=== PATIENT | male | born 1950 | race Caucasian/White ===

== ENCOUNTER 2020-03-16 14:58 | IRF | payer MEDICARE, OTHER, SELFPAY ==
[2020-03-16 15:00] VITALS: BP 149/69; PULSE 75; RESP 18; TEMP 36.6; O2SAT 98; BMI 26.6
--- NOTE | 2020-03-16 16:37 | ADMGEN ---
This patient, Alexis Teague, was admitted to [facility] Room 222-02. Patient/family oriented to hospital policies and general routines including ID bracelet, bed and alarms, visiting hours, pain management, procedures, bathroom and other care routines, personal items, smoking policy, room service/diet, and visiting hours. Valuables list has been completed. Information on how to activate the Rapid Response Team has been discussed. Patient/Family are encouraged to report perceived risks to care and to ask questions if they do not understand what they are told or what they should do.
[2020-03-16 17:10] LABS: Glucose Point of Care 245 (65-105)
[2020-03-16] MEDS: INSULIN ASPART (*BKC) 100 UNITS/ML SUB-Q ×2 (17:42→17:43)
[2020-03-16] MEDS: INSULIN GLARGINE (LANTUS) 1,000 UNITS/10 ML VIAL 16 UNITS SUB-Q (20:23)
[2020-03-16] MEDS: TAMSULOSIN HCL 0.4 MG CAPSULE PO (20:23)
[2020-03-16 20:26] LABS: Glucose Point of Care 232 (65-105)
[2020-03-16 21:15] VITALS: PULSE 58; RESP 13; O2SAT 97
[2020-03-16 22:00] VITALS: BP 143/72; PULSE 72; RESP 18; TEMP 36.2; O2SAT 97
[2020-03-17 01:54] VITALS: PULSE 60; RESP 17; O2SAT 96
[2020-03-17 05:17] LABS: Basophils Absolute Auto 0.1 K/mm3 (0.0-0.1); Basophils Percent Auto 0.6 % (0.2-1.2); Eosinophils Absolute Auto 0.5 K/mm3 (0-0.3); Eosinophils Percent Auto 5.9 % (0-4.4); Hematocrit 38.7 % (42.0-52.0); Hemoglobin 13.6 g/dL (14.0-18.0); Immature Granulocyte Absolute 0.03 K/mm3 (0.00-0.031); Immature Granulocyte Percent A 0.4 % (0-0.5); Lymphocytes Absolute Auto 2.71 K/mm3 (0.9-3.2); Lymphocytes Percent Auto 34.3 % (18.3-44.2); Mean Corpuscular HGB Conc 35.1 g/dl (32-36); Mean Corpuscular Volume 91.1 fl (80-100); Mean Platelet Volume 10.9 fl (7.4-10.4); Monocytes Absolute Auto 0.7 K/mm3 (0.1-0.6); Monocytes Percent Auto 9.4 % (2.6-8.5); Neutrophils Absolute Auto 3.9 K/mm3 (1.3-6.7); Neutrophils Percent Auto 49.4 % (45.5-73.1); Platelet Count Result 193 k/mm3 (150-375); Red Blood Count 4.25 M/mm3 (4.6-6.20); Red Cell Distribution Width 11.9 % (11.5-14.5); White Blood Count 7.9 K/mm3 (4.5-10.0)
[2020-03-17 05:32] LABS: Blood Urea Nitrogen 14 mg/dL (9-20); Calcium 9.4 mg/dL (8.4-10.2); Carbon Dioxide 32 mmol/L (22-30); Chloride 101 mmol/L (98-107); Estimated CRCL calculation 68 ml/min; Estimated Glomerular Filt Rate > 60; Glucose 206 mg/dL (75-110); Potassium 3.7 mmol/L (3.4-5.0); Sodium 136 mmol/L (137-145)
[2020-03-17 06:00] VITALS: BP 141/78; PULSE 56; RESP 18; TEMP 36.7; O2SAT 96
[2020-03-17 06:53] LABS: Glucose Point of Care 183 (65-105)
[2020-03-17 08:00] VITALS: PULSE 56; RESP 18; O2SAT 96
[2020-03-17] MEDS: ESCITALOPRAM OXALATE 10 MG TABLET PO (08:18)
[2020-03-17] MEDS: PANTOPRAZOLE 40 MG TABLET PO (08:18)
[2020-03-17] MEDS: CHOLECALCIFEROL 1,000 UNIT TABLET 1000 UNITS PO (08:18)
[2020-03-17] MEDS: ASPIRIN 325 MG ENTERIC TABLET PO (08:18)
[2020-03-17] MEDS: VITAMIN E 1,000 UNIT CAPSULE 1000 UNIT PO (08:19)
[2020-03-17] MEDS: INSULIN ASPART (*BKC) 100 UNITS/ML SUB-Q ×3 (08:20→17:42)
--- NOTE | 2020-03-17 09:30 | WPDREHABHP ---
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 The patient is a 69-year-old the white male with a past medical history of ventriculomegaly, hypertension, coronary artery disease, carotid stenosis, diabetes mellitus, hypertension, hyperlipidemia, sinus tachycardia, and obstructive sleep apnea who presented to [facility] on March 10, 2020 transferred from [facility] after being found down by his son. Patient laying from [facility] around 3:00 p.m.. He presented with left-sided weakness left facial droop and decreased sensation on the left. Of note he was scheduled to have a high volume lumbar spinal tap on December 22 at [facility], the procedure was canceled due to the COVID-[address] of the head showed no acute intracranial abnormalities. He was transferred to [facility] but there were no beds available. He received aspirin prior to being transferred to [facility]. MRI revealed an acute right posterior frontal, parietal infarct. Neurology was consulted and started the patient on a high intensity and statin and anti-platelet therapy. Carotid Dopplers estimated less than 50% stenosis bilaterally with antegrade flow in both vertebral arteries. EEG was negative echocardiogram showed a positive PFO and Cardiology was consulted. He will be discharged with an event monitor. Cardiology will consider closure in the monitor does not show any arrhythmias. Physical examination cut is we will left-sided weakness decreased gross motor control impaired balance and decreased safety awareness. The patient passed his swallowing study and is on mechanical soft diet with thin liquids. His seems like the patient had muscle aches and pains due to atorvastatin and it has been discontinued The patient has had no major surgery in the 100 days prior to admission. The patient has had falls in the past year. The patient has had no falls with injuries in the past year the patient was found down prompting this admission Therapy was initiated at the acute care facility and the patient transferred to us from [facility] on March 16, 2020 FALLS OR SURGERIES: The patient has had no major surgeries in the 100 days prior to admission. They had falls in the past year. They had falls withoutinjury in the past year. PAST MEDICAL HISTORY: anxiety, coronary artery disease, carotid stenosis, diabetes mellitus with hyperglycemia, CVA, Bejarano's esophagus, gastroesophageal reflux disease, hyperlipidemia, hypertension, kidney stones, lumbar spondylosis, obstructive sleep apnea, neutrophilic leukocytosis, asymmetric blood pressures, benign prostatic hyperplasia with nocturia PAST SURGICAL HISTORY: cardiac stent placement, coronary artery bypass graft, fracture surgery, knee surgery, lithotripsy, sinus surgery, tonsillectomy SOCIAL HISTORY: patient lives independently in a 1 level home with the basement. He is able to live on the main level with bedroom /bathroom. There to steps to enter with rails. He is a standard toilet. Patient was completely independent prior with no assistive device. He was able to drive. 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 He quit smoking 47 years ago. Occasional use of alcohol. No illicit use of drug. The patient was found down prompting this admission. No major surgery in the past in a daze. FAMILY HISTORY: Mother with diabetes Alzheimer's disease and heart attack. Father with heart attack. Sister with diabetes hypertension is stroke heart disease. Paternal grandmother with memory loss. Paternal grandfather with cancer and heart attack PRIOR LEVEL OF FUNCTION: Eat
[2020-03-17 12:25] LABS: Glucose Point of Care 185 (65-105)
[2020-03-17 14:00] VITALS: BP 152/72; PULSE 69; RESP 18; TEMP 36.7; O2SAT 98
[2020-03-17 14:09] VITALS: BMI 26.6
[2020-03-17 17:13] LABS: Glucose Point of Care 164 (65-105)
[2020-03-17] MEDS: TAMSULOSIN HCL 0.4 MG CAPSULE PO (20:21)
[2020-03-17 20:55] LABS: Glucose Point of Care 235 (65-105)
[2020-03-17] MEDS: INSULIN GLARGINE (LANTUS) 1,000 UNITS/10 ML VIAL 16 UNITS SUB-Q (20:59)
[2020-03-17 22:00] VITALS: BP 149/77; PULSE 64; RESP 18; TEMP 36.8; O2SAT 99
[2020-03-17 22:30] VITALS: PULSE 61; RESP 14; O2SAT 98
[2020-03-18 02:26] VITALS: PULSE 60; RESP 13; O2SAT 97
[2020-03-18 06:00] VITALS: BP 129/69; PULSE 64; RESP 18; TEMP 36.6; O2SAT 100
[2020-03-18 06:04] LABS: Glucose Point of Care 153 (65-105)
[2020-03-18] MEDS: CHOLECALCIFEROL 1,000 UNIT TABLET 1000 UNITS PO (08:46)
[2020-03-18] MEDS: ASPIRIN 325 MG ENTERIC TABLET PO (08:46)
[2020-03-18] MEDS: PANTOPRAZOLE 40 MG TABLET PO (08:47)
[2020-03-18] MEDS: ESCITALOPRAM OXALATE 10 MG TABLET PO (08:47)
[2020-03-18] MEDS: VITAMIN E 1,000 UNIT CAPSULE 1000 UNIT PO (08:47)
[2020-03-18] MEDS: INSULIN ASPART (*BKC) 100 UNITS/ML SUB-Q ×4 (09:05→17:25)
--- NOTE | 2020-03-18 10:34 | RPD ---
INDIVIDUALIZED PLAN OF CARE FOR Alexis Teague Brief Synthesis of Pre-Admission Screen, Post-Admission Evaluation and Therapy Evaluations: The patient presents to rehab with an acute right posterior frontal/parietal infarct. Comorbidities include hypertension, carotid stenosis, coronary artery disease, dyslipidemia, obstructive sleep apnea on CPAP, type 2 diabetes mellitus with hyperglycemia, obesity, neutrophilic leukocytosis, asymmetric blood pressures, chronic depression, and benign prostatic hyperplasia with nocturia. The patient?s needs will be best met in an intensive program vs. at a lower level of care. The patient requires physician services for neurology services, medical oversight, coordination of care, monitoring and treatment of uncontrolled diabetes mellitus, hypertension with asymmetric blood pressures, monitoring for adverse reactions to new medications, pain control, and monitoring of infection. The patient requires nursing services for frequent neuro checks, anticoagulation therapy, medication management and education, pressure relief and skin care management, monitoring of labs, bowel and bladder training, diabetes management and education, and fall/safety precautions. Deficits include:ADLs, Balance, Cognition, Endurance, Family Training/Education, Mobility, ROM, Safety, Strength, Swallowing, and Transfers. Solid Waste Engineer/Case Management for: Discharge Planning and Patient/Family Counseling Physical Therapy: 5 days per week for 75 minutes. Treatments may include: Therapeutic Exercise, Gait Training, Neuromuscular Re-education, Transfer Training, Community Reintegration, Bed Mobility, Patient/Family Education, Wheelchair Mobility Group Therapy/Concurrent Therapy Rationales: -Improve attention span during functional activities in a distracted environment. -Enhance problem solving and/or adequate judgment skills during functional activities in a distracted environment. -Promote increased safety awareness in a distracted environment to reduce fall risk with functional tasks, transfers, and ambulation to allow a more safe, self-sufficient return to the home environment. -Improve dynamic balance skills to promote safety and independence with functional activities in a distracted environment for maximum gain. Occupational Therapy: 5 days per week for 75 minutes. Treatments may include: Therapeutic Exercise, Therapeutic Activity, Cognitive Training, Self-Care Transfer Training, Community Reintegration, Home Management, Patient/Family Education, Wheelchair Mobility Training, Energy Conservation Training Group Therapy/Concurrent Therapy Rationales: -Allow therapist to observe and teach generalization and carry-over of skills learned in individual therapy. -Enhance problem solving and sequencing skills during therapeutic activities in a distracted environment. -Promote increased safety awareness in a realistic setting to reduce fall risk with functional tasks due to visual and verbal distractions. -Increase functional level with ADLs, ADL transfers and use of adaptive equipment through therapeutic activities with others while promoting safety to allow a more safe, self-sufficient return home. Speech Therapy: 5 days per week for 30 minutes. Treatments may include: Dysphasia Therapy, Speech/Language/Communication Therapy, Cognitive Training, Patient/Family Education Group Therapy/Concurrent Therapy - Rationale: -Allow therapist to observe and teach generalization and carry-over of skills learned in individual therapy. -Improve comprehension skills with complex or abstract ideas through discussion in a realistic setting. -Enhance problem solving skills with complex issues during activities in a distracted environment. -Promote increased memory skills and concentration in a distracted environment for a safe transition home. -Improve attention and focus with language/communication skills in a realistic and supportive therapeutic setting. -Allow for practice of expres
[2020-03-18 12:39] LABS: Glucose Point of Care 206 (65-105)
[2020-03-18 14:00] VITALS: BP 128/65; PULSE 76; RESP 18; TEMP 36.6; O2SAT 98
[2020-03-18 17:31] LABS: Glucose Point of Care 191 (65-105)
[2020-03-18] MEDS: INSULIN GLARGINE (LANTUS) 1,000 UNITS/10 ML VIAL 16 UNITS SUB-Q (20:36)
[2020-03-18] MEDS: TAMSULOSIN HCL 0.4 MG CAPSULE PO (20:36)
[2020-03-18 20:57] LABS: Glucose Point of Care 231 (65-105)
[2020-03-18 21:39] VITALS: PULSE 55; RESP 25; O2SAT 96
[2020-03-18 22:00] VITALS: BP 146/81; PULSE 69; RESP 16; TEMP 36.9; O2SAT 100
[2020-03-19 02:10] VITALS: PULSE 64; RESP 13; O2SAT 94
[2020-03-19 06:00] VITALS: BP 159/72; PULSE 57; RESP 18; TEMP 36.3; O2SAT 100
[2020-03-19 06:59] LABS: Glucose Point of Care 172 (65-105)
[2020-03-19 08:00] VITALS: PULSE 57; RESP 18; O2SAT 100
[2020-03-19] MEDS: INSULIN ASPART (*BKC) 100 UNITS/ML SUB-Q ×4 (09:41→17:31)
[2020-03-19] MEDS: ASPIRIN 325 MG ENTERIC TABLET PO (09:46)
[2020-03-19] MEDS: PANTOPRAZOLE 40 MG TABLET PO (09:46)
[2020-03-19] MEDS: CHOLECALCIFEROL 1,000 UNIT TABLET 1000 UNITS PO (09:47)
[2020-03-19] MEDS: ESCITALOPRAM OXALATE 10 MG TABLET PO (09:47)
[2020-03-19] MEDS: VITAMIN E 1,000 UNIT CAPSULE 1000 UNIT PO (09:47)
[2020-03-19 12:50] LABS: Glucose Point of Care 187 (65-105)
--- NOTE | 2020-03-19 12:51 | WPDNEURORHBP ---
Subjective Date/time seen: 03/19/20 12:51 Interval history: this 69-year-old gentleman is here after having had right hemispheric stroke with left-sided hemiparesis he is doing fairly well he denies any headache nausea vomiting chest pain shortness of breath fever chills sore throat Review of Systems Review of Systems: All systems reviewed & are unremarkable except as noted in HPI and below Functional Status Ambulation Ability Ability to Ambulate 10 Feet: Contact Guard Ability to Ambulate 50 Feet With 2 Turns: Contact Guard Ability to Ambulate 150 Feet: Contact Guard Ambulation Assistive Devices: None Transfers Ability Ability to Transfer In/Out of Chair: Independent Exam Const: General: comfortable and no acute distress HENMT: General nose exam: Normal nares present Mouth: Yes moist mucous membranes Eyes: General: appearance normal, both eyes and all related structures Neck: Neck: supple and no JVD Resp: Effort & Inspection: normal respiratory effort Auscultation: clear to auscultation bilaterally Cardio: Rate: regular rate Rhythm: regular rhythm GI: GI Palp: Yes Soft to palpation Auscultation: normal bowel sounds Skin: General skin exam: normal color and no rashes or lesions noted Neuro: Other: patient is awake and alert and well oriented and left-sided hemiparesis is stable and improved Extrem: General: normal to inspection Psych: Mental Status: mental status grossly normal Objective Data Vital Signs Vital Signs: Vital Signs - 24 hr 03/18/20 14:00 03/18/20 21:39 03/18/20 22:00 Temperature 36.6 C 36.9 C Pulse Rate 76 55 L 69 Respiratory Rate 18 25 H 16 Blood Pressure 128/65 146/81 H Pulse Oximetry 98 96 100 03/19/20 02:10 03/19/20 06:00 03/19/20 08:00 Temperature 36.3 C L Pulse Rate 64 57 L 57 L Respiratory Rate 13 18 18 Blood Pressure 159/72 H Pulse Oximetry 94 100 100 Intake/Output Intake/Output: Intake & Output 03/16/20 03/17/20 03/18/20 03/19/20 23:59 23:59 23:59 23:59 Intake Total 212 985 3302 Balance 113 295 8818 Meds/Results Medications: Active Medications Generic Name Dose Route Start Last Admin Trade Name Freq PRN Reason Stop Dose Admin Aspirin 325 mg 03/17/20 09:00 03/19/20 09:46 Aspirin Ec PO 325 mg DAILY DEEPTI Administration Escitalopram Oxalate 10 mg 03/17/20 09:00 03/19/20 09:47 Lexapro PO 10 mg DAILY DEEPTI Administration Insulin Aspart 3 - 6 units 03/16/20 17:00 03/19/20 11:57 Novolog SUB-Q Not Given [facility] Protocol Insulin Aspart 5 units 03/16/20 17:00 03/19/20 11:59 Novolog SUB-Q 5 units TIDWM DEEPTI Administration Insulin Glargine 16 units 03/16/20 21:00 03/18/20 20:36 Lantus SUB-Q 04/15/20 21:01 16 units HS DEEPTI Administration Nitroglycerin 0.4 mg 03/16/20 16:29 Nitrostat Subl 0.4 Mg (1/150) SUBLINGUAL Q5MIN PRN Chest Pain Non-Formulary Medication 1 tab-cap 03/17/20 09:00 Vit B Comp With C-Calcium Carb PO 04/16/20 09:01 DAILY DEEPTI Pantoprazole Sodium 40 mg 03/17/20 09:00 03/19/20 09:46 Protonix PO 40 mg QAM DEEPTI Administration Tamsulosin HCl 0.4 mg 03/16/20 21:00 03/18/20 20:36 Flomax PO 0.4 mg HS DEEPTI Administration Vitamin D 1,000 unit 03/17/20 09:00 03/19/20 09:47 Vitamin D PO 1,000 unit DAILY DEEPTI Administration Vitamin E 1,000 unit 03/17/20 09:00 03/19/20 09:47 Vitamin E PO 1,000 unit DAILY DEEPTI Administration Labs Labs: Laboratory Results - last 24 hr 03/18/20 03/18/20 03/19/20 17:15 20:33 06:48 POC Capillary Glucose 191 H 231 H 172 H 03/19/20 11:55 POC Capillary Glucose 187 H Progress Note: A&P Assessment and Plan (1) Cerebral ventriculomegaly: Code(s): G93.89 - Other specified disorders of brain Status: Acute (2) H/O heart artery stent: Code(s): Z95.5 - Presence of coronary angioplasty implant and graft Status: Acute (3) FH: CABG (coron
[2020-03-19 14:00] VITALS: BP 126/58; PULSE 74; RESP 20; TEMP 36.6; O2SAT 95
[2020-03-19 17:15] LABS: Glucose Point of Care 215 (65-105)
[2020-03-19 20:49] VITALS: PULSE 65; RESP 17; O2SAT 97
[2020-03-19] MEDS: INSULIN GLARGINE (LANTUS) 1,000 UNITS/10 ML VIAL 16 UNITS SUB-Q (20:58)
[2020-03-19] MEDS: TAMSULOSIN HCL 0.4 MG CAPSULE PO (20:59)
[2020-03-19 22:00] VITALS: BP 144/78; PULSE 67; RESP 20; TEMP 37; O2SAT 99
[2020-03-19 22:01] LABS: Glucose Point of Care 207 (65-105)
[2020-03-20 06:00] VITALS: BP 137/59; PULSE 77; RESP 20; TEMP 36.4; O2SAT 100
[2020-03-20 06:50] LABS: Glucose Point of Care 155 (65-105)
[2020-03-20] MEDS: ASPIRIN 325 MG ENTERIC TABLET PO (09:26)
[2020-03-20] MEDS: CHOLECALCIFEROL 1,000 UNIT TABLET 1000 UNITS PO (09:26)
[2020-03-20] MEDS: PANTOPRAZOLE 40 MG TABLET PO (09:26)
[2020-03-20] MEDS: ESCITALOPRAM OXALATE 10 MG TABLET PO (09:26)
[2020-03-20] MEDS: VITAMIN E 1,000 UNIT CAPSULE 1000 UNIT PO (09:26)
[2020-03-20] MEDS: INSULIN ASPART (*BKC) 100 UNITS/ML SUB-Q ×4 (09:28→17:45)
[2020-03-20 10:30] VITALS: O2SAT 67
[2020-03-20 12:31] LABS: Glucose Point of Care 211 (65-105)
[2020-03-20 14:00] VITALS: BP 142/60; PULSE 66; RESP 20; TEMP 36.4; O2SAT 97
--- NOTE | 2020-03-20 16:54 | WPDNEURORHBP ---
Subjective Date/time seen: 03/20/20 16:54 Interval history: this pleasant 69-year-old gentleman is here after having had the stroke which has left him with left-sided hemiparesis he is complaining of dry skin of his face and we will give him some Vaseline He denies any headache nausea vomiting chest pain shortness of breath fever chills sore throat He does have underlying ventriculomegaly for which she and near future once he gets the rehab and he will need rather prolonged slow drainage of his spinal fluid which was arranged at [facility] however was deferred because of the Coronavirus Review of Systems Review of Systems: All systems reviewed & are unremarkable except as noted in HPI and below Functional Status Ambulation Ability Ability to Ambulate 10 Feet: Standby Assistance Ability to Ambulate 50 Feet With 2 Turns: Standby Assistance Ability to Ambulate 150 Feet: Standby Assistance Ambulation Assistive Devices: None Transfers Ability Ability to Transfer In/Out of Chair: Independent Exam Const: General: comfortable and no acute distress HENMT: General nose exam: Normal nares present Mouth: Yes moist mucous membranes Eyes: General: appearance normal, both eyes and all related structures Neck: Neck: supple and no JVD Resp: Effort & Inspection: normal respiratory effort Auscultation: clear to auscultation bilaterally Cardio: Rate: regular rate Rhythm: regular rhythm GI: GI Palp: Yes Soft to palpation Auscultation: normal bowel sounds Skin: General skin exam: normal color and no rashes or lesions noted Neuro: Other: the patient is awake alert well oriented time place person has normal speech and language function and mild memory deficit left-sided hemiparesis is improving Extrem: General: normal to inspection Psych: Mental Status: mental status grossly normal Objective Data Vital Signs Vital Signs: Vital Signs - 24 hr 03/19/20 20:49 03/19/20 22:00 03/20/20 06:00 Temperature 37.0 C 36.4 C Pulse Rate 65 67 77 Respiratory Rate 17 20 20 Blood Pressure 144/78 H 137/59 L Pulse Oximetry 97 99 100 03/20/20 14:00 Temperature 36.4 C Pulse Rate 66 Respiratory Rate 20 Blood Pressure 142/60 H Pulse Oximetry 97 Intake/Output Intake/Output: Intake & Output 03/17/20 03/18/20 03/19/20 03/20/20 23:59 23:59 23:59 23:59 Intake Total 840 1080 480 480 Balance 840 1080 480 480 Meds/Results Medications: Active Medications Generic Name Dose Route Start Last Admin Trade Name Elena PRN Reason Stop Dose Admin Aspirin 325 mg 03/17/20 09:00 03/20/20 09:26 Aspirin Ec PO 325 mg DAILY DEEPTI Administration Escitalopram Oxalate 10 mg 03/17/20 09:00 03/20/20 09:26 Lexapro PO 10 mg DAILY [facility] Administration Insulin Aspart 3 - 6 units 03/16/20 17:00 03/20/20 12:41 Novolog SUB-Q 3 units TIDWM DEET[facility] Administration Protocol Insulin Aspart 5 units 03/16/20 17:00 03/20/20 12:40 Novolog SUB-Q 5 units TIDWM DEEPTI Administration Insulin Glargine 16 units 03/16/20 21:00 03/19/20 20:58 Lantus SUB-Q 04/15/20 21:01 16 units HS [facility] Administration Nitroglycerin 0.4 mg 03/16/20 16:29 Nitrostat Subl 0.4 Mg (1/150) SUBLINGUAL Q5MIN PRN Chest Pain Non-Formulary Medication 1 tab-cap 03/17/20 09:00 Vit B Comp With C-Calcium Carb PO 04/16/20 09:01 DAILY [facility] Pantoprazole Sodium 40 mg 03/17/20 09:00 03/20/20 09:26 Protonix PO 40 mg QAM DEEPTI Administration Tamsulosin HCl 0.4 mg 03/16/20 21:00 03/19/20 20:59 Flomax PO 0.4 mg HS [facility] Administration Vitamin D 1,000 unit 03/17/20 09:00 03/20/20 09:26 Vitamin D PO 1,000 unit DAILY DEEPTI Administration Vitamin E 1,000 unit 03/17/20 09:00 03/20/20 09:26 Vitamin E PO 1,000 unit DAILY DEEPTI Administration Labs Labs: Laboratory Results - last 24 hr 03/19/20 03/19/20 03/20/20 16:43 20:58 06:47 POC Capillary Glucose 215 H 207 H 155 H
[2020-03-20 17:18] LABS: Glucose Point of Care 149 (65-105)
[2020-03-20 20:00] VITALS: PULSE 75; RESP 18; O2SAT 97
[2020-03-20] MEDS: TAMSULOSIN HCL 0.4 MG CAPSULE PO (21:21)
[2020-03-20] MEDS: INSULIN GLARGINE (LANTUS) 1,000 UNITS/10 ML VIAL 16 UNITS SUB-Q (21:23)
[2020-03-20 21:41] LABS: Glucose Point of Care 216 (65-105)
[2020-03-20 22:00] VITALS: BP 139/68; PULSE 75; RESP 18; TEMP 37; O2SAT 97
[2020-03-20 22:17] VITALS: PULSE 70; RESP 16; O2SAT 97
[2020-03-21 06:00] VITALS: BP 128/65; PULSE 58; RESP 18; TEMP 36.4; O2SAT 99
[2020-03-21 06:37] LABS: Glucose Point of Care 182 (65-105)
[2020-03-21] MEDS: ASPIRIN 325 MG ENTERIC TABLET PO (09:40)
[2020-03-21] MEDS: ESCITALOPRAM OXALATE 10 MG TABLET PO (09:40)
[2020-03-21] MEDS: PANTOPRAZOLE 40 MG TABLET PO (09:40)
[2020-03-21] MEDS: VITAMIN E 1,000 UNIT CAPSULE 1000 UNIT PO (09:40)
[2020-03-21] MEDS: CHOLECALCIFEROL 1,000 UNIT TABLET 1000 UNITS PO (09:40)
[2020-03-21] MEDS: INSULIN ASPART (*BKC) 100 UNITS/ML SUB-Q ×3 (09:41→18:55)
[2020-03-21 12:28] LABS: Glucose Point of Care 172 (65-105)
[2020-03-21 14:00] VITALS: BP 143/76; PULSE 70; RESP 20; TEMP 36.7; O2SAT 97
[2020-03-21 17:32] LABS: Glucose Point of Care 128 (65-105)
--- NOTE | 2020-03-21 18:02 | WPDNEURORHBP ---
Subjective Date/time seen: 03/21/20 18:02 Interval history: this 69-year-old gentleman with existing ventriculomegaly is here after having a right hemispheric stroke with left pelon paresis he is improving overall and doing much better in the therapy denies any headache nausea vomiting chest pain shortness of breath fever chills or sore throat or any new neurological symptoms Review of Systems Review of Systems: All systems reviewed & are unremarkable except as noted in HPI and below Functional Status Ambulation Ability Ability to Ambulate 10 Feet: Standby Assistance Ability to Ambulate 50 Feet With 2 Turns: Standby Assistance Ability to Ambulate 150 Feet: Contact Guard Ambulation Assistive Devices: None Transfers Ability Ability to Transfer In/Out of Chair: Independent Exam Const: General: comfortable and no acute distress HENMT: General nose exam: Normal nares present Mouth: Yes moist mucous membranes Eyes: General: appearance normal, both eyes and all related structures Neck: Neck: supple and no JVD Resp: Effort & Inspection: normal respiratory effort Auscultation: clear to auscultation bilaterally Cardio: Rate: regular rate Rhythm: regular rhythm GI: GI Palp: Yes Soft to palpation Auscultation: normal bowel sounds Skin: General skin exam: normal color and no rashes or lesions noted Neuro: Other: patient is improving left-sided hemiparesis overall quite with it Extrem: General: normal to inspection Psych: Mental Status: mental status grossly normal Objective Data Vital Signs Vital Signs: Vital Signs - 24 hr 03/20/20 20:00 03/20/20 22:00 03/20/20 22:17 Temperature 37.0 C Pulse Rate 75 75 70 Respiratory Rate 18 18 16 Blood Pressure 139/68 Pulse Oximetry 97 97 97 03/21/20 06:00 03/21/20 14:00 Temperature 36.4 C 36.7 C Pulse Rate 58 L 70 Respiratory Rate 18 20 Blood Pressure 128/65 143/76 H Pulse Oximetry 99 97 Intake/Output Intake/Output: Intake & Output 03/18/20 03/19/20 03/20/20 03/21/20 23:59 23:59 23:59 23:59 Intake Total 1080 480 720 480 Balance 1080 855 720 480 Meds/Results Medications: Active Medications Generic Name Dose Route Start Last Admin Trade Name Freq PRN Reason Stop Dose Admin Aspirin 325 mg 03/17/20 09:00 03/21/20 09:40 Aspirin Ec PO 325 mg DAILY DEEPTI Administration Escitalopram Oxalate 10 mg 03/17/20 09:00 03/21/20 09:40 Lexapro PO 10 mg DAILY DEEPTI Administration Insulin Aspart 3 - 6 units 03/16/20 17:00 03/21/20 13:17 Novolog SUB-Q Not Given [facility] Protocol Insulin Aspart 5 units 03/16/20 17:00 03/21/20 13:17 Novolog SUB-Q 5 units TIDWM DEEPTI Administration Insulin Glargine 16 units 03/16/20 21:00 03/20/20 21:23 Lantus SUB-Q 04/15/20 21:01 16 units HS DEEPTI Administration Nitroglycerin 0.4 mg 03/16/20 16:29 Nitrostat Subl 0.4 Mg (1/150) SUBLINGUAL Q5MIN PRN Chest Pain Non-Formulary Medication 1 tab-cap 03/17/20 09:00 Vit B Comp With C-Calcium Carb PO 04/16/20 09:01 DAILY DEEPTI Pantoprazole Sodium 40 mg 03/17/20 09:00 03/21/20 09:40 Protonix PO 40 mg QAM DEEPTI Administration Tamsulosin HCl 0.4 mg 03/16/20 21:00 03/20/20 21:21 Flomax PO 0.4 mg HS DEEPTI Administration Vitamin D 1,000 unit 03/17/20 09:00 03/21/20 09:40 Vitamin D PO 1,000 unit DAILY DEEPTI Administration Vitamin E 1,000 unit 03/17/20 09:00 03/21/20 09:40 Vitamin E PO 1,000 unit DAILY DEEPTI Administration Labs Labs: Laboratory Results - last 24 hr 03/20/20 03/21/20 03/21/20 21:22 06:19 12:10 POC Capillary Glucose 216 H 182 H 172 H 03/21/20 17:16 POC Capillary Glucose 128 H Progress Note: A&P Assessment and Plan (1) Cerebral ventriculomegaly: Code(s): G93.89 - Other specified disorders of brain Status: Acute (2) H/O heart artery stent: Code(s): Z95.5 - Presence of coronary angioplasty implant and smita
[2020-03-21] MEDS: TAMSULOSIN HCL 0.4 MG CAPSULE PO (20:25)
[2020-03-21] MEDS: INSULIN GLARGINE (LANTUS) 1,000 UNITS/10 ML VIAL 16 UNITS SUB-Q (20:30)
[2020-03-21 21:09] LABS: Glucose Point of Care 283 (65-105)
[2020-03-21 21:41] VITALS: BP 143/63; PULSE 66; RESP 16; TEMP 36.5; O2SAT 100
[2020-03-21 22:29] VITALS: PULSE 69; RESP 17; O2SAT 97
[2020-03-22 01:31] VITALS: PULSE 70; RESP 20; O2SAT 96
[2020-03-22 06:00] VITALS: BP 151/76; PULSE 77; RESP 20; TEMP 37.2; O2SAT 100
[2020-03-22 06:32] LABS: Glucose Point of Care 138 (65-105)
[2020-03-22 08:00] VITALS: PULSE 80; RESP 20; O2SAT 100
[2020-03-22] MEDS: ASPIRIN 325 MG ENTERIC TABLET PO (09:11)
[2020-03-22] MEDS: VITAMIN E 1,000 UNIT CAPSULE 1000 UNIT PO (09:11)
[2020-03-22] MEDS: ESCITALOPRAM OXALATE 10 MG TABLET PO (09:11)
[2020-03-22] MEDS: PANTOPRAZOLE 40 MG TABLET PO (09:12)
[2020-03-22] MEDS: INSULIN ASPART (*BKC) 100 UNITS/ML SUB-Q ×3 (09:13→17:12)
[2020-03-22] MEDS: CHOLECALCIFEROL 1,000 UNIT TABLET 1000 UNITS PO (09:15)
--- NOTE | 2020-03-22 11:19 | WPDNEURORHBP ---
Subjective Date/time seen: S/P right Post Fronto parietal stroke, Hypertension,carotid disease DM,hyperlipidemia and ventriclumegaly and obstructive sleep apnea03/22/20 11:19 Review of Systems Review of Systems: All systems reviewed & are unremarkable except as noted in HPI and below Constitutional: Constitutional: Reports as per HPI Functional Status Ambulation Ability Ability to Ambulate 10 Feet: Standby Assistance Ability to Ambulate 50 Feet With 2 Turns: Standby Assistance Ability to Ambulate 150 Feet: Contact Guard Ambulation Assistive Devices: None Transfers Ability Ability to Transfer In/Out of Chair: Independent Exam Const: General: cooperative, comfortable, alert and awake Nutritional Appearance: average body habitus Orientation/consciousness: patient oriented x3 HENMT: Head: normal to inspection Face and sinus: normal facial exam Eyes: General: appearance normal, both eyes and all related structures Neck: Neck: full ROM and no lymphadenopathy Resp: Effort & Inspection: normal respiratory effort and able to speak in complete sentences Auscultation: clear to auscultation bilaterally Cardio: Rate: regular rate Rhythm: regular rhythm GI: Auscultation: normal bowel sounds Skin: General skin exam: no rashes or lesions noted Neuro: General: patient oriented x3 Motor exam (neuro): Abnormal motor strength present (left hemiparesis) Psych: Appearance: grossly normal Objective Data Vital Signs Vital Signs: Vital Signs - 24 hr 03/21/20 14:00 03/21/20 21:41 03/21/20 22:29 Temperature 36.7 C 36.5 C Pulse Rate 70 66 69 Respiratory Rate 20 16 17 Blood Pressure 143/76 H 143/63 H Pulse Oximetry 97 100 97 03/22/20 01:31 03/22/20 06:00 Temperature 37.2 C Pulse Rate 70 77 Respiratory Rate 20 20 Blood Pressure 151/76 H Pulse Oximetry 96 100 Intake/Output Intake/Output: Intake & Output 03/19/20 03/20/20 03/21/20 03/22/20 23:59 23:59 23:59 23:59 Intake Total 480 720 720 240 Balance 480 720 720 240 Meds/Results Medications: Active Medications Generic Name Dose Route Start Last Admin Trade Name Freq PRN Reason Stop Dose Admin Aspirin 325 mg 03/17/20 09:00 03/22/20 09:11 Aspirin Ec PO 325 mg DAILY DEEPTI Administration Escitalopram Oxalate 10 mg 03/17/20 09:00 03/22/20 09:11 Lexapro PO 10 mg DAILY DEEPTI Administration Insulin Aspart 3 - 6 units 03/16/20 17:00 03/22/20 09:10 Novolog SUB-Q Not Given [facility] Protocol Insulin Aspart 5 units 03/16/20 17:00 03/22/20 09:13 Novolog SUB-Q 5 units TIDWM DEEPTI Administration Insulin Glargine 16 units 03/16/20 21:00 03/21/20 20:30 Lantus SUB-Q 04/15/20 21:01 16 units HS DEEPTI Administration Nitroglycerin 0.4 mg 03/16/20 16:29 Nitrostat Subl 0.4 Mg (1/150) SUBLINGUAL Q5MIN PRN Chest Pain Non-Formulary Medication 1 tab-cap 03/17/20 09:00 Vit B Comp With C-Calcium Carb PO 04/16/20 09:01 DAILY DEEPTI Pantoprazole Sodium 40 mg 03/17/20 09:00 03/22/20 09:12 Protonix PO 40 mg QAM DEEPTI Administration Tamsulosin HCl 0.4 mg 03/16/20 21:00 03/21/20 20:25 Flomax PO 0.4 mg HS DEEPTI Administration Vitamin D 1,000 unit 03/17/20 09:00 03/22/20 09:15 Vitamin D PO 1,000 unit DAILY DEEPTI Administration Vitamin E 1,000 unit 03/17/20 09:00 03/22/20 09:11 Vitamin E PO 1,000 unit DAILY DEEPTI Administration Labs Labs: Laboratory Results - last 24 hr 03/21/20 03/21/20 03/21/20 12:10 17:16 20:28 POC Capillary Glucose 172 H 128 H 283 H 03/22/20 06:29 POC Capillary Glucose 138 H Progress Note: A&P Assessment and Plan (1) Cerebral ventriculomegaly: Code(s): G93.89 - Other specified disorders of brain Status: Acute (2) H/O heart artery stent: Code(s): Z95.5 - Presence of coronary angioplasty implant and graft Status: Acute (3) FH: CABG (coronary artery bypass surgery): Code(s):
--- NOTE | 2020-03-22 11:48 | PCDIET ---
Nutrition Follow-Up Complete: No nutrition diagnosis at this time. Patient to consume 75% of meals or greater. Goal: Goal met. Continue goal. Pt current nutrition is Heart Healthy/DBCC . Nutrition recommendation: Agree Last recorded weight is 91.8 kg (recommend updated wt) Bowel Motility: BM+ 03/20 Labs Reviewed:Glucose 138 Meds Noted: Vit B, C, D, E, Insulin, Protonix Additional Notes: Pt has a good appetite and is eating 100% of all meals. Labs and skin WNL. Diet appropriate and bowels moving. Following every seven days.
[2020-03-22 12:11] LABS: Glucose Point of Care 147 (65-105)
[2020-03-22 14:00] VITALS: BP 147/75; PULSE 80; RESP 20; TEMP 37; O2SAT 100
[2020-03-22 16:44] LABS: Glucose Point of Care 174 (65-105)
[2020-03-22] MEDS: TAMSULOSIN HCL 0.4 MG CAPSULE PO (20:02)
[2020-03-22] MEDS: INSULIN GLARGINE (LANTUS) 1,000 UNITS/10 ML VIAL 16 UNITS SUB-Q (20:38)
[2020-03-22 21:13] LABS: Glucose Point of Care 204 (65-105)
[2020-03-22 22:00] VITALS: BP 145/66; PULSE 62; RESP 18; TEMP 36.9; O2SAT 97
[2020-03-22 23:07] VITALS: PULSE 70; RESP 18; O2SAT 96
[2020-03-23 06:00] VITALS: BP 137/59; PULSE 60; RESP 18; TEMP 36.4; O2SAT 96
[2020-03-23 06:46] LABS: Glucose Point of Care 107 (65-105)
[2020-03-23] MEDS: INSULIN ASPART (*BKC) 100 UNITS/ML SUB-Q ×3 (11:09→13:46)
[2020-03-23] MEDS: ASPIRIN 325 MG ENTERIC TABLET PO (11:10)
[2020-03-23] MEDS: ESCITALOPRAM OXALATE 10 MG TABLET PO (11:10)
[2020-03-23] MEDS: PANTOPRAZOLE 40 MG TABLET PO (11:10)
[2020-03-23] MEDS: CHOLECALCIFEROL 1,000 UNIT TABLET 1000 UNITS PO (11:10)
[2020-03-23] MEDS: VITAMIN E 1,000 UNIT CAPSULE 1000 UNIT PO (11:10)
[2020-03-23 11:32] LABS: Glucose Point of Care 244 (65-105)
--- NOTE | 2020-03-23 13:15 | WPDNEURORHBP ---
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 / ventriculomegaly,Discuss discussed in the tele conference in detail patient is done well in the rehab and ready to be discharged this afternoon and the family will be came up He denies any headache nausea vomiting chills fever sore throat Review of Systems Review of Systems: All systems reviewed & are unremarkable except as noted in HPI and below Functional Status Ambulation Ability Ability to Ambulate 10 Feet: Standby Assistance Ability to Ambulate 50 Feet With 2 Turns: Independent Ability to Ambulate 150 Feet: Independent Ambulation Assistive Devices: None Transfers Ability Ability to Transfer In/Out of Chair: Independent Exam Const: General: comfortable and no acute distress HENMT: General nose exam: Normal nares present Mouth: Yes moist mucous membranes Eyes: General: appearance normal, both eyes and all related structures Neck: Neck: supple and no JVD Resp: Effort & Inspection: normal respiratory effort Auscultation: clear to auscultation bilaterally Cardio: Rate: regular rate Rhythm: regular rhythm GI: GI Palp: Yes Soft to palpation Auscultation: normal bowel sounds Skin: General skin exam: normal color and no rashes or lesions noted Neuro: Other: the left-sided hemiparesis has significantly improved he has achieved or goals and will recommend outpatient PT and OT Extrem: General: normal to inspection Psych: Mental Status: mental status grossly normal Objective Data Vital Signs Vital Signs: Vital Signs - 24 hr 03/22/20 14:00 03/22/20 22:00 03/22/20 23:07 Temperature 37.0 C 36.9 C Pulse Rate 80 62 70 Respiratory Rate 20 18 18 Blood Pressure 147/75 H 145/66 H Pulse Oximetry 100 97 96 03/23/20 06:00 Temperature 36.4 C Pulse Rate 60 Respiratory Rate 18 Blood Pressure 137/59 L Pulse Oximetry 96 Intake/Output Intake/Output: Intake & Output 03/20/20 03/21/20 03/22/20 03/23/20 23:59 23:59 23:59 23:59 Intake Total 720 720 720 480 Balance 720 720 720 480 Meds/Results Medications: Active Medications Generic Name Dose Route Start Last Admin Trade Name Elena PRN Reason Stop Dose Admin Aspirin 325 mg 03/17/20 09:00 03/23/20 11:10 Aspirin Ec PO 325 mg DAILY DEEPTI Administration Escitalopram Oxalate 10 mg 03/17/20 09:00 03/23/20 11:10 Lexapro PO 10 mg DAILY DEEPTI Administration Insulin Aspart 3 - 6 units 03/16/20 17:00 03/23/20 11:15 Novolog SUB-Q Not Given TIDWM [facility] Protocol Insulin Aspart 5 units 03/16/20 17:00 03/23/20 11:09 Novolog SUB-Q 5 units TIDWM DEEPTI Administration Insulin Glargine 16 units 03/16/20 21:00 03/22/20 20:38 Lantus SUB-Q 04/15/20 21:01 16 units HS DEEPTI Administration Nitroglycerin 0.4 mg 03/16/20 16:29 Nitrostat Subl 0.4 Mg (1/150) SUBLINGUAL Q5MIN PRN Chest Pain Non-Formulary Medication 1 tab-cap 03/17/20 09:00 Vit B Comp With C-Calcium Carb PO 04/16/20 09:01 DAILY [facility] Pantoprazole Sodium 40 mg 03/17/20 09:00 03/23/20 11:10 Protonix PO 40 mg QAM DEEPTI Administration Tamsulosin HCl 0.4 mg 03/16/20 21:00 03/22/20 20:02 Flomax PO 0.4 mg HS DEEPTI Administration Vitamin D 1,000 unit 03/17/20 09:00 03/23/20 11:10 Vitamin D PO 1,000 unit DAILY DEEPTI Administration Vitamin E 1,000 unit 03/17/20 09:00 03/23/20 11:10 Vitamin E PO 1,000 unit DAILY DEEPTI Administration Labs Labs: Laboratory Results - last 24 hr 03/22/20 03/22/20
[2020-03-23 14:00] VITALS: BP 148/73; PULSE 82; RESP 18; TEMP 36.6; O2SAT 99
--- NOTE | 2020-03-26 14:08 | PM.DS ---
DS: Admitting Diagnosis Admitting Diagnosis Admitting Diagnosis: Cerebral infarction, unspecified DS: Discharge Diagnosis Discharge Diagnosis (1) Cerebral ventriculomegaly: Code(s): G93.89 - Other specified disorders of brain Status: Acute (2) H/O heart artery stent: Code(s): Z95.5 - Presence of coronary angioplasty implant and graft Status: Acute (3) FH: CABG (coronary artery bypass surgery): Code(s): Z82.49 - Family history of ischemic heart disease and other diseases of the circulatory system Status: Acute (4) Coronary artery disease: Code(s): I25.10 - Atherosclerotic heart disease of [place] coronary artery without angina pectoris Status: Acute (5) Diabetes mellitus: Code(s): E11.9 - Type 2 diabetes mellitus without complications Status: Acute (6) Left hemiparesis: Code(s): G81.94 - Hemiplegia, unspecified affecting left nondominant side Status: Acute DS: Summary Hospital Course Reason for hospitalization: this 76-year-old gentleman was admitted with the above-mentioned diagnosis he received physical therapy of compression therapy and gait training and was able to achieve the following independent measures eating independent oral hygiene independent toileting independent bathing independent upper body dressing independent lower body dressing is independent foot where independent rolling in bed independent sitting lying independent lying to sitting independent [id number] independent her chair transfers independent toilet transfers independent car transfers independent walking 10 feet independent walking 50 feet 2 turns independent walking 150 feet independent walking 10 feet uneven surfaces independent cock Arbor step independent 4 steps independent 12 steps independent thinking about 8 independent wheelchair 50 feet not applicable wheelchair 150 feet not applicable The patient was sent home with outpatient PT and OT no falls were recorded Time Spent with Patient Time attestation: Total time spent providing and/or coordinating discharge services: Exam Const: General: comfortable and no acute distress HENMT: General nose exam: Normal nares present Mouth: Yes dry mucous membranes Eyes: General: appearance normal, both eyes and all related structures Neck: Neck: supple and no JVD Resp: Effort & Inspection: normal respiratory effort Auscultation: clear to auscultation bilaterally Cardio: Rate: regular rate Rhythm: regular rhythm GI: GI Palp: Yes Soft to palpation Auscultation: normal bowel sounds Skin: General skin exam: normal color and no rashes or lesions noted Neuro: Other: patient's hemiparesis significantly improved his cognitive deficit which he has most likely from the ventricular low megaly and possible NPH is at the baseline Extrem: General: normal to inspection Psych: Mental Status: mental status grossly normal Discharge Plan Discharge Attending physician on discharge: Rusty Winkler Discharging Clinician: Rusty Winkler Anticipated Discharge Date/Time: 03/23/20 13:22 Patient Disposition: Home, Self-Care Activity: may shower and no driving Diet: diabetic Patient Instructions: Antibiotic Form, Pain Management in Older Adults (DC), Type 2 Diabetes in the Older Adult (ED) Stand Alone Forms: General Discharge Information Follow-up/Referrals: primary [Other] (call primary care physician for follow up in 2-4 weeks. ) Sukhdeep Nix MD [Other] caesar gabriel M.D. [Other] [facility] [Other] Discharge Medications: New Lantus U-100 Insulin 100 unit/mL Solution 16 unit subcut HS Qty: 10 RF: 0 insulin aspart U-100 [Novolog U-100 Insulin aspart] 100 unit/mL Solution 3 - 6 units subcut TIDWM Qty: 1 RF: 0 Continued aspirin 325 mg Tablet,Delayed Release (Dr/Ec) 325 mg PO DAILY RF: 0 vitamin E 1,000 unit Capsule 1,000 unit PO DAILY RF: 0
== END 2020-03-23 16:30 | disposition home or self-care (01) | DRG 57 ==
PROVIDERS: Admitting Provider Psychiatry & Neurology Neurology; PCP Family Medicine; Visit Provider Psychiatry & Neurology Neurology
DX: I69.354 Hemiplegia and hemiparesis following cerebral infarction affecting left non-dominant side (principal); I69.392 Facial weakness following cerebral infarction; I69.311 Memory deficit following cerebral infarction; E78.5 Hyperlipidemia, unspecified; E11.65 Type 2 diabetes mellitus with hyperglycemia; G47.33 Obstructive sleep apnea (adult) (pediatric); G93.89 Other specified disorders of brain; I10 Essential (primary) hypertension; I25.10 Atherosclerotic heart disease of native coronary artery without angina pectoris; I65.23 Occlusion and stenosis of bilateral carotid arteries; M47.816 Spondylosis without myelopathy or radiculopathy, lumbar region; N40.1 Benign prostatic hyperplasia with lower urinary tract symptoms; R35.1 Nocturia; Z95.5 Presence of coronary angioplasty implant and graft; Z95.1 Presence of aortocoronary bypass graft; Z79.4 Long term (current) use of insulin; Z79.82 Long term (current) use of aspirin
CPT/HCPCS: 36415; 80048; 85025; 92507; 92523; 97110; 97116; 97129; 97130; 97161; 97165; 97530; 97535; A9270; J1815